=== PATIENT | female | born 1955 | race Two or more races ===

== ENCOUNTER 2020-08-30 06:40 | Outpatient (REF) | payer OTHER, SELFPAY ==
[2020-08-30 11:30] LABS: MANUAL DIFF FLAG NO
[2020-08-30 11:38] LABS: Basophils Percent Auto 0.6 % (0-2); Eosinophils Absolute Auto 0.6 X10*3/uL (0.0-0.4); Eosinophils Percent Auto 8.4 % (0-4); Hematocrit 43.4 % (37-47); Imm Gran Abs Auto 0.02 X10*3/uL (0.00-0.03); Imm Gran Pct Auto 0.3 % (0.0-0.4); Lymphocytes Absolute Auto 2.2 X10*3/uL (1.2-4.9); Lymphocytes Percent Auto 34.1 % (20-40); Mean Corpuscular HGB Conc 32.3 g/dl (31.0-35.0); Mean Corpuscular Hemoglobin 30.3 pg (27.0-33.0); Mean Corpuscular Volume 93.9 fL (80-98); Mean Platelet Volume 11.2 fL (9.4-12.3); Monocytes Absolute Auto 0.5 X10*3/uL (0.1-1.2); Monocytes Percent Auto 7.8 % (2-11); Neutrophils Absolute Auto 3.2 X10*3/uL (2.0-8.3); Neutrophils Percent Auto 48.8 % (45-73); Platelet Count 251 X10*3/uL (160-400); Red Blood Count 4.62 X10*6/uL (4.20-5.50); Red Cell Distribution Width 13.2 % (11.0-16.0); White Blood Count 6.5 X10*3/uL (4.8-10.8)
[2020-08-30 11:42] LABS: Alanine Aminotransferase 72 U/L (0-31); Anion Gap 12 (12-20); Aspartate Amino Transferase 43 U/L (5-31); Blood Urea Nitrogen 11 mg/dL (9-16); Calcium 9.3 mg/dL (8.4-10.2); Carbon Dioxide 28 mmol/L (22-29); Chloride 105 mmol/L (96-108); Cholesterol 169 mg/dL; Estimated Glomerular Filt Rate > 60; Glucose Fasting 89 mg/dL (60-99); HDL Cholesterol 58 mg/dL; LDL Cholesterol Calculated 88 mg/dl; Potassium 4.1 mmol/l (3.3-5.1); Sodium 141 mmol/L (135-145); Triglycerides 116 mg/dL; Uric Acid 6.3 mg/dL (2.4-5.7)
[2020-08-30 12:07] LABS: Vitamin D 25-OH Total 38.9 ng/mL (>30)
== END 2020-08-30 06:41 | disposition home or self-care (01) ==
LOC: HO.HMGCLDS 06:40
PROVIDERS: PCP Internal Medicine; Visit Provider Internal Medicine
DX: Z00.01 Encounter for general adult medical examination with abnormal findings (principal); I10 Essential (primary) hypertension; E79.0 Hyperuricemia without signs of inflammatory arthritis and tophaceous disease; Z78.0 Asymptomatic menopausal state; M85.859 Other specified disorders of bone density and structure, unspecified thigh
CPT/HCPCS: 36415; 80048; 80061; 82306; 84443; 84450; 84460; 84550; 85025

== ENCOUNTER 2021-05-03 06:33 | Outpatient (REF) | payer OTHER, SELFPAY ==
[2021-05-03 11:49] LABS: Uric Acid 6.6 mg/dL (2.4-5.7)
[2021-05-03 12:16] LABS: Vitamin D 25-OH Total 31.7 ng/mL (>30)
== END 2021-05-03 06:34 | disposition home or self-care (01) ==
LOC: HO.HMGCLDS 06:33
PROVIDERS: PCP Internal Medicine; Visit Provider Internal Medicine
DX: E79.0 Hyperuricemia without signs of inflammatory arthritis and tophaceous disease (principal); M85.852 Other specified disorders of bone density and structure, left thigh; Z78.0 Asymptomatic menopausal state
CPT/HCPCS: 36415; 82306; 84550

== ENCOUNTER 2021-11-13 08:55 | Outpatient (REF) | payer OTHER, SELFPAY ==
[2021-11-13 12:36] LABS: Alanine Aminotransferase 70 U/L (0-31); Albumin Level 4.4 g/dL (3.5-5.0); Alkaline Phosphatase 84 U/L (39-117); Anion Gap 12 (12-20); Aspartate Amino Transferase 41 U/L (5-31); Bilirubin Total 0.4 mg/dL (0.0-1.0); Blood Urea Nitrogen 16 mg/dL (9-16); Calcium 9.7 mg/dL (8.4-10.2); Carbon Dioxide 27 mmol/L (22-29); Chloride 105 mmol/L (96-108); Cholesterol 189 mg/dL; Estimated Glomerular Filt Rate > 60; Glucose Fasting 88 mg/dL (60-99); HDL Cholesterol 63 mg/dL; LDL Cholesterol Calculated 108 mg/dl; Potassium 4.1 mmol/L (3.3-5.1); Sodium 140 mmol/L (135-145); Total Protein 8.2 g/dL (6.5-8.0); Triglycerides 91 mg/dL
[2021-11-13 12:38] LABS: Vitamin D 25-OH Total 33.2 ng/mL (>30)
== END 2021-11-13 08:56 | disposition home or self-care (01) ==
LOC: HO.HMGCLDS 08:55
PROVIDERS: PCP Internal Medicine; Visit Provider Internal Medicine
DX: Z00.01 Encounter for general adult medical examination with abnormal findings (principal); N60.91 Unspecified benign mammary dysplasia of right breast; E79.0 Hyperuricemia without signs of inflammatory arthritis and tophaceous disease; M85.852 Other specified disorders of bone density and structure, left thigh; Z78.0 Asymptomatic menopausal state
CPT/HCPCS: 36415; 80053; 80061; 82306; 84550

== ENCOUNTER 2021-12-01 09:00 | Outpatient (RCR) | payer OTHER, SELFPAY ==
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
== END 2021-12-01 12:16 | disposition home or self-care (01) ==
LOC: HO.PTCHIC 09:00
PROVIDERS: PCP Internal Medicine; Visit Provider Internal Medicine
DX: S16.1XXD Strain of muscle, fascia and tendon at neck level, subsequent encounter (principal); S39.012D Strain of muscle, fascia and tendon of lower back, subsequent encounter; Z87.828 Personal history of other (healed) physical injury and trauma
CPT/HCPCS: 97014; 97110; 97140; 97161

== ENCOUNTER 2022-02-27 14:07 | Outpatient (REF) | payer MEDICARE, SELFPAY ==
[2022-02-27 15:19] LABS: MANUAL DIFF FLAG NO
[2022-02-27 15:42] LABS: Basophils Absolute Auto 0.1 X10*3/uL (0.0-0.2); Basophils Percent Auto 0.7 % (0-2); Eosinophils Absolute Auto 0.3 X10*3/uL (0.0-0.4); Eosinophils Percent Auto 4.5 % (0-4); Hematocrit 44.3 % (37.0-47.0); Hemoglobin 14.4 g/dl (12.0-16.0); Imm Gran Abs Auto 0.02 X10*3/uL (0.00-0.03); Imm Gran Pct Auto 0.3 % (0.0-0.4); Lymphocytes Absolute Auto 2.4 X10*3/uL (1.2-4.9); Lymphocytes Percent Auto 34.8 % (20-40); Mean Corpuscular HGB Conc 32.5 g/dl (31.0-35.0); Mean Corpuscular Hemoglobin 30.6 pg (27.0-33.0); Mean Corpuscular Volume 94.3 fL (80.0-98.0); Mean Platelet Volume 10.7 fL (9.4-12.3); Monocytes Absolute Auto 0.5 X10*3/uL (0.1-1.2); Monocytes Percent Auto 7.6 % (2-11); Neutrophils Absolute Auto 3.6 x10*3/uL (2.0-8.3); Neutrophils Percent Auto 52.1 % (45-73); Platelet Count 260 X10*3/uL (160-400); Red Cell Distribution Width 13.1 % (11.0-16.0); White Blood Count 6.9 X10*3/uL (4.8-10.8)
[2022-02-27 16:05] LABS: Alanine Aminotransferase 64 U/L (0-31); Albumin Level 4.4 g/dL (3.5-5.0); Alkaline Phosphatase 82 U/L (39-117); Anion Gap 11 (12-20); Aspartate Amino Transferase 39 U/L (5-31); Bilirubin Total 0.3 mg/dL (0.0-1.0); Blood Urea Nitrogen 17 mg/dL (9-16); Calcium 10.3 mg/dL (8.4-10.2); Carbon Dioxide 29 mmol/L (22-29); Chloride 107 mmol/L (96-108); Estimated Glomerular Filt Rate > 60; Glucose Random 104 mg/dL (60-115); Potassium 4.1 mmol/L (3.3-5.1); Sodium 143 mmol/L (135-145); Total Protein 8.3 g/dL (6.5-8.0)
== END 2022-02-27 14:08 | disposition home or self-care (01) ==
LOC: HO.LAB 14:07
PROVIDERS: PCP Internal Medicine; Referring Provider Internal Medicine; Visit Provider Nurse Practitioner
DX: Z01.818 Encounter for other preprocedural examination (principal); D12.6 Benign neoplasm of colon, unspecified
CPT/HCPCS: 36415; 80053; 85025; 99202

== ENCOUNTER 2022-08-23 06:45 | Day surgery (SDC) | payer MEDICARE, SELFPAY ==
[2022-08-17 10:44] VITALS: BMI 27.9
[2022-08-17 10:49] VITALS: BMI 27.9
--- NOTE | 2022-08-22 08:19 | P.CONAN_ITS ---
Documented by User: Sinai Santillan NP 08/22/22 08:20 HPI - Anesthesia Eval Consult details Narrative: 66yo F for Colonoscopy PMFSH Active Problems Active Problems: All Active Problems (Updated 02/27/22 @ 15:20 by DAVID العراقي) Colon cancer screening (Acute) Tubular adenoma of colon (Acute) Spasm of lumbar paraspinous muscle (Acute) Skin lesion of face (Acute) Hyperuricemia (Acute) Asymptomatic postmenopausal state (Acute) Atypical ductal hyperplasia of right breast (Acute) Osteopenia of femoral neck (Acute) Past Medical History Medical History (Updated 02/27/22 @ 15:20 by DAVID العراقي) Asymptomatic postmenopausal state Atypical ductal hyperplasia of right breast Cervical strain, acute Hyperuricemia Osteopenia of femoral neck Rotator cuff injury Skin lesion of face Spasm of lumbar paraspinous muscle Tubular adenoma of colon Family History Family History Father Acute [place] CAD (coronary artery disease) Gout HTN (hypertension) CVD (cardiovascular disease) Mother Diabetes mellitus HTN (hypertension) CVD (cardiovascular disease) Pacemaker Brother No problems noted. Brother No problems noted. Brother No problems noted. Sister No problems noted. Son No problems noted. Son No problems noted. Surgical History Surgical History (Updated 08/17/22 @ 10:41 by Alessandra Mcbride RN) History of colonoscopy History of rotator cuff surgery Social History Social History Housing: House Alcohol intake: current Alcohol intake frequency: holidays/special occasions only Patient Tobacco Use Status: Never used Tobacco e-Cigarette/Vaping Use: Never Used Second Hand Smoke Exposure: No service: No Current occupational status: retired Cognitive needs: No Hearing needs: No Vision needs: No Meds Allergies Allergy/AdvReac Type Severity Reaction Status Date / Time oxycodone [Percocet] AdvReac Unknown lightheaded, Verified 02/27/22 14:33 nausea & vomiting Home Medications Medication Instructions Recorded Confirmed Last Taken Type anastrozole 1 mg tablet 1 mg PO DAILY 08/25/20 08/17/22 Unknown History cholecalciferol (vitamin D3) 25 25 mcg PO DAILY 08/25/20 08/17/22 Unknown History mcg (1,000 unit) tablet cyclobenzaprine 10 mg tablet 10 mg PO TID 07/31/21 08/17/22 Unknown History ibuprofen 800 mg tablet 800 mg PO TID 07/31/21 11/13/21 Unknown History Exam Exam Date and Time: August 22, 2022 0819 Height,Weight and Vital Signs: Height 5 ft 4 in Weight 73.936 kg Pertinent Lab Results Pertinent Lab Results: Laboratory Tests 02/27/22 02/27/22 15:17 15:17 WBC 6.9 Hgb 14.4 Hct 44.3 Plt Count 260 Sodium 143 Potassium 4.1 Chloride 107 Carbon Dioxide 29 BUN 17 H Creatinine 0.89 Assessment and Plan Assessment Anesthesia Assessment: Chart Reviewed Documented by User: Andre Cordero MD 08/23/22 17:51 [facility] Past Medical History Medical History (Updated 02/27/22 @ 15:20 by DAVID العراقي) Asymptomatic postmenopausal state Atypical ductal hyperplasia of right breast Cervical strain, acute Hyperuricemia Osteopenia of femoral neck Rotator cuff injury Skin lesion of face Spasm of lumbar paraspinous muscle Tubular adenoma of colon Functional capacity: independent ambulation Family History Family History Father Acute [place] CAD (coronary artery disease) Gout HTN (hypertension) CVD (cardiovascular disease) Mother Diabetes mellitus HTN (hypertension) CVD (cardiovascular disease) Pacemaker Brother No problems noted. Brother No problems noted. Brother No problems noted. Sister No problems noted. Son No problems noted. Son No problems noted. Family history of problems with anesthesia: No Surgical History Surgical History (Updated 08/17/22 @ 10:41 by Alessandra Mcbride RN) History of colonoscopy History of rotator cuff surgery History of Problems with Anesthesia: No Social History Social History Housing: House Alcohol intake: current Alcohol intake frequency: holidays/special occasions only Patient Tobacco Use Status: Never used Tobacco e-Cigarette/Vaping Use: Never Used Second Hand Smoke Exposure: No service: No Current occupational status: retired Cognitive needs: No Hearing needs: No Vision needs: No Meds Allergies Allergy/AdvReac Type Severity Reaction Status Date / Time oxycodone [Percocet] AdvReac Unknown lightheaded, Verified 02/27/22 14:33 nausea & vomiting Home Medications Medication Instructions Recorded Confirmed Last Taken Type anastrozole 1 mg tablet 1 mg PO DAILY 08/25/20 08/17/22 Unknown History cholecalciferol (vitamin D3) 25 25 mcg PO DAILY 08/25/20 08/17/22 Unknown History mcg (1,000 unit) tablet cyclobenzaprine 10 mg tablet 10 mg PO TID 07/31/21 08/17/22 Unknown History ibuprofen 800 mg tablet 800 mg PO TID 07/31/21 11/13/21 Unknown History Exam Airway Mallampati Class: III Neck ROM: Full Loose/Missing/Broken Teeth: Yes (Multiple missing front lower ) Heart: S1,S2 Lungs: b/l breath sounds Assessment and Plan Assessment Anesthesia Assessment: Anesthesia Plan Discussed Final Anesthetic Review Family History of Problems with Anesthesia: No History of Problems with Anesthesia: No NPO: Yes ASA Class: II Final Preanesthetic Review: Meds/Allgs Chart Reviewed, Consent Obtained/Reviewed and Anes Risks/Benef Reviewed Patient Risk: Intermediate Procedure Risk: Intermediate Anesthetic Plan Anesthetic Plan: MAC: Disposition: Standard PACU
[2022-08-23 06:57] VITALS: BP 148/73; PULSE 65; RESP 18; TEMP 36.1; O2SAT 99
[2022-08-23 07:08] VITALS: BMI 27.4
[2022-08-23] MEDS: Lactated Ringers 1,000 ML 100 ML IVCONT (07:29)
--- NOTE | 2022-08-23 08:25 | MHC.SHP ---
Pre-Procedural Eval Section A Date of Service: 08/23/22 Section B Chief Complaint: screening Details of Present Illness: aunt with CRC Relevant Family History (Specify if Yes): Yes Relevant Social History: None Present Medications: see Short Stay Collaborative assessment Medical History: Significant History (Asymptomatic postmenopausal state Atypical ductal hyperplasia of right breast Cervical strain, acute Hyperuricemia Osteopenia of femoral neck Rotator cuff injury Skin lesion of face Spasm of lumbar paraspinous muscle Tubular adenoma of colon) History of Previous Operations: Relevant previous surgery/procedure and date(s) (rotator cuff surgery, colonoscopy) Allergies: Allergies Allergy/AdvReac Type Severity Reaction Status Date / Time oxycodone [Percocet] AdvReac Unknown lightheaded, Verified 02/27/22 14:33 nausea & vomiting Review of Systems Sugical H&P ROS: Negative: Constitution, Cardiovascular, Respiratory, Neurological, Psychiatric, Hem-Onc, Allergic/Immunologic, Gastrointestinal, Genitourinary, Musculoskeletal, Integumentary, Endocrine and Eyes/Ears/Nose/Throat Exam Surgical H&P Exam: Normal: HEENT, Normal: Heart, Normal: Lungs, Normal: Extremities, Normal: Abdomen, Normal: Skin and Normal: Neurological Plan Diagnosis/Plan: Unchanged I have reviewed the history and physical and performed a pertinent physical examination on my patient. No changes have occurred unless specified.
--- NOTE | 2022-08-23 08:26 | P.OP_ITS ---
Operative Note Operative Note Date of Service: 08/23/22 Narrative: Operative Information Procedure Description: Colonoscopy Indication: screening, father with polyps, personal hx of polyps Anesthesia: MAC COLONOSCOPY Instrument: Olympus variable stiffness pediatric scope 190L Colonoscopy Monitoring: Vital signs and clinical assessment, continuous EKG monitoring, Pulse oximetry, Carbon Dioxide monitoring and blood pressure monitoring were done throughout the procedure. Colon withdrawal time was 7 minutes. Procedure: The patient was placed in the left lateral decubitis position and pre-procedure medications were administered. After a digital rectal examination of the ano-rectum, the video colonoscope was inserted into the rectum and advanced through the colon to the cecum/TI. The colonoscope was slowly withdrawn in a retrograde panoramic fashion and the colon mucosa was carefully examined including a retroflexed view of the rectum. Findings and interventions are described below. Procedure Difficulty: easy Findings: Terminal Ileum-normal Cecum:normal Ascending Colon: normal Transverse Colon -normal Descending Colon:normal Sigmoid Colon: scattered small tics Rectum: Retroflexion with medium sized internal hemorrhoids, grade I Anorectum - normal Colon preparation: [place] Bowel Preparation Scale Right colon; 2 Transverse colon: 3 Left colon; 3 (0 = Unprepared colon segment with mucosa not seen due to solid stool that cannot be cleared. 1 = Portion of mucosa of the colon segment seen, but other areas of the colon segment not well seen due to staining, residual stool and/or opaque liquid. 2 = Minor amount of residual staining, small fragments of stool and/or opaque liquid, but mucosa of colon segment seen well. 3 = Entire mucosa of colon segment seen well with no residual staining, small fragments of stool or opaque liquid) Impression and Post Procedure Diagnosis: internal hemorrhoids diverticular disease Plan: High fiber diet leaflet Avoid straining at stool, epsom salts and sitz bath, anusol supps or cream Repeat Colonoscopy in 5 years due to FH of polyps and personal hx of unknown type of polyps or earlier if clinically indicated Above findings were reviewed with the patient and relevant handouts were provided if indicated.
[2022-08-23 08:53] VITALS: BP 84/52; PULSE 69; RESP 18; TEMP 36.1; O2SAT 96
[2022-08-23 09:08] VITALS: BP 133/77; PULSE 68; RESP 18; TEMP 36.4; O2SAT 97
== END 2022-08-23 09:43 | disposition home or self-care (01) ==
PROVIDERS: PCP Internal Medicine; Visit Provider Internal Medicine Gastroenterology
PROC: 0DJD8ZZ Inspection of Lower Intestinal Tract, Via Natural or Artificial Opening Endoscopic (ICD-10-PCS; CPT 45378; principal; 2022-08-23 08:10)
DX: Z12.11 Encounter for screening for malignant neoplasm of colon (principal); Z86.010 Personal history of colon polyps; Z83.71 Family history of colonic polyps; K57.30 Diverticulosis of large intestine without perforation or abscess without bleeding; K64.0 First degree hemorrhoids; M85.851 Other specified disorders of bone density and structure, right thigh; N60.91 Unspecified benign mammary dysplasia of right breast; E79.0 Hyperuricemia without signs of inflammatory arthritis and tophaceous disease; Z79.811 Long term (current) use of aromatase inhibitors; Z79.899 Other long term (current) drug therapy; Z88.8 Allergy status to other drugs, medicaments and biological substances
CPT/HCPCS: G0105

== ENCOUNTER → 2022-09-13 08:36 | Outpatient (BNVA) | payer MEDICARE, SELFPAY | PROVIDERS: PCP Internal Medicine; Visit Provider Nurse Practitioner | DX: D12.6 Benign neoplasm of colon, unspecified (principal) | CPT/HCPCS: 99212 ==

== ENCOUNTER 2023-07-18 14:57 | Outpatient (AMB) | payer MEDICARE, SELFPAY ==
--- NOTE | 2023-07-18 15:00 | MHC.PC.OV ---
Vital Signs 07/18/23 15:01 Height 5 ft 4 in Weight 165 lb 6 oz BMI 28.4 BP 122/76 Blood Pressure Location Rt brachial Position Sitting Pulse 77 Pulse Source Pulse Oximeter Pulse Oximetry (%) 97 Oxygen Delivery Method Room Air Intake Visit Reasons: 6 month f/u osteopenia Intake Note: pt is here for 6 mon f/u osteopenia Compound Mixer Required: No Accompanied by: Self / Same As Patient Allergies oxycodone [Percocet] Adverse Reaction (Unknown, Verified 07/18/23 15:56) lightheaded, nausea & vomiting Medication List - Last Reconciled 07/18/23 by Daphney Bhatia MD anastrozole 1 mg PO DAILY cholecalciferol (vitamin D3) 25 mcg PO DAILY [TENS UNIT As directed] Tobacco use date assessed: 07/18/23 Fall risk assessment: No Falls in past year Last assessed Fall Risk: 07/18/23 Dental Screening Dental Screen Date: 07/18/23 Did you have a dental visit in the last 12 months?: Yes Did you have a dental problem in the last 6 months where you did not have access to dental care?: No Was dental information given to patient?: Patient has dentist HPI 6 month f/u osteopenia HPI Details 67-year-old lady with history of atypical ductal hyperplasia right breast currently on anastrozole, has osteopenia femoral neck on the left, hyperuricemia, and history of adenomatous polyps of colon seen on last colonoscopy, here today for follow-up. She has been feeling well, but has not been getting any regular exercise, has gained weight since last visit. She had a recent bone density scan done at [facility] which still showed presence of osteopenia in left femoral neck. [facility], [facility] Medical History (Updated 07/18/23 @ 17:33 by Daphney Bhatia MD) Spasm of lumbar paraspinous muscle Skin lesion of face Cervical strain, acute Asymptomatic postmenopausal state Hyperuricemia Atypical ductal hyperplasia of right breast Tubular adenoma of colon Osteopenia of femoral neck Rotator cuff injury Surgical History History of colonoscopy History of rotator cuff surgery Family History Father Acute [place] CAD (coronary artery disease) Gout HTN (hypertension) CVD (cardiovascular disease) Mother Diabetes mellitus HTN (hypertension) CVD (cardiovascular disease) Pacemaker Brother No problems noted. Brother No problems noted. Brother No problems noted. Sister No problems noted. Son No problems noted. Son No problems noted. Social History Housing: House Alcohol intake: current Alcohol intake frequency: holidays/special occasions only Patient Tobacco Use Status: Never used Tobacco e-Cigarette/Vaping Use: Never Used Second Hand Smoke Exposure: No service: No Current occupational status: retired Cognitive needs: No Hearing needs: No Vision needs: No Questionnaire Thrive Questionnaire Date Thrive assessed: 11/13/21 SAMIR-7 AMB Questionnaire SAMIR-7 Date SAMIR - 7 assessed: 07/18/23 Feeling nervous, anxious, or on edge: 0 = Not at all Not being able to stop or control worryin = Not at all Worrying too much about different things: 0 = Not at all Trouble relaxin = Not at all Being so restless that it is hard to sit still: 0 = Not at all Becoming easily annoyed or irritable: 0 = Not at all Feeling afraid as if something awful might happen: 0 = Not at all Total SAMIR-7 score (0-4 normal; 5-9 mild; 10-14 moderate; 15-21 severe): 0 Source: Developed by Drs. Dany Flynn, Renetta Valladares, Alexander Pink and colleagues, with an educational sophie from [employer]. SAMIR-7 Assessment Billing SAMIR-7 Assessment Tool: SAMIR-7 Assessment 57492 Review of Systems Const Denies body aches, Denies difficulty sleeping, Denies fatigue, Denies fever(s), Denies headache(s), Denies weakness and Reports weight gain Eyes Denies change in vision, Denies eye discharge and Denies itchy eyes ENT Reports Normal hearing present, Denies vertigo, Denies dizziness, Denies headache(s), Denies nasal congestion, Denies nasal discharge, Denies disequilibrium and Denies sore throat Card Denies chest pain, Denies irregular heart rhythm, Denies lightheadedness, Denies palpitations and Denies dyspnea Resp Denies chest congestion, Denies cough, Denies dyspnea and Denies wheezing GI Denies abdominal pain, Denies melena, Denies hematochezia, Denies change in bowel habits and Denies heartburn Denies urinary frequency, Denies dysuria, Denies urinary urgency and Reports vaginal dryness Musc Reports no additional complaints Skin/Breast Denies breast swelling, Denies breast pain, Denies breast mass, Denies lesions and Denies rash Neuro Reports Normal hearing present, Denies vertigo, Denies dizziness, Denies headache(s), Denies Sensory deficit (Neuro), Denies disequilibrium and Denies weakness Psych Reports as per HPI Endo Denies fatigue, Denies polydipsia, Denies polyuria and Denies palpitations López/Lymph Reports no additional complaints and Denies easy bruising Aller/Immun Denies itchy eyes, Denies seasonal rhinorrhea and Denies wheezing Physical exam (Primary Care) Vital Signs: Last Vital Signs Pulse 77 07/18/23 15:01 BP 122/76 07/18/23 15:01 Pulse Ox 97 07/18/23 15:01 Oxygen Delivery Method Room Air 07/18/23 15:01 BMI result Body Mass Index 28.4 Tobacco/Smoking Status: Tobacco use Status Tobacco use date assessed 07/18/23 07/18/23 15:03 Patient Tobacco Use Status Never used Tobacco 07/18/23 15:03 e-Cigarette/Vaping Use Never Used 07/18/23 15:03 Thrive Assessment: Date of Thrive Assessment Date Thrive assessed 11/13/21 07/18/23 15:03 Const General: comfortable, no acute distress, alert, awake and Physically active Orientation/consciousness: patient oriented x3 HENNM Head: Yes normocephalic Mouth: Normal oral and palatal mucosa present, oropharynx normal and moist mucous membranes Eyes General: appearance normal, both eyes and all related structures Neck Neck: Yes full ROM, Yes no lymphadenopathy and Yes supple Resp Auscultation: clear to auscultation bilaterally Cardio Other: S1-S2 present regular rate and rhythm GI Other: Normal bowel sounds, soft, nontender with no mass palpated General: Yes no CVA tenderness Back/Spine/Pelvis Back: no CVA tenderness and No back tenderness Cervical Spine: normal cervical lordosis and cervical ROM normal Thoracic/Lumbar Spine: thoracic and lumbar spine normal to inspection Skin General skin exam: no rashes or lesions noted Neuro General: patient oriented x3, gait normal, tone normal, moves all extremities and no focal motor deficits Cranial nerves: Yes Normal hearing present Sensory Exam: No Sensory deficit (Neuro) Extrem General: Yes full ROM, Yes no joint enlargement, Yes no clubbing, cyanosis or edema and Yes normal gait Assessment and Plan Assessment & Plan (1) Hyperuricemia: Code(s): E79.0 - Hyperuricemia without signs of inflammatory arthritis and tophaceous disease Plan: Discussed adherence with a low purine diet. Will check serum uric acid, has not had any attacks of gout since last visit. (2) Osteopenia of femoral neck: Code(s): M85.859 - Other specified disorders of bone density and structure, unspecified thigh Qualifiers: Laterality: left Qualified Code(s): M85.852 - Other specified disorders of bone density and structure, left thigh Plan: Wants noted on recent bone density scan done at [facility]. Reinforced importance of doing regular weight-bearing exercise, taking adequate calcium from dietary sources and continue taking [id number] vitamin-D 3 at 2000 units daily. (3) Atypical ductal hyperplasia of right breast: Code(s): N60.91 - Unspecified benign mammary dysplasia of right breast Plan: Currently on anastrozole, followed by Dr. Arlyn GARCIA Orders: Orders Glucose Fasting Today E79.0 - Hyperuricemia without signs of inflammatory arthritis and tophaceous disease, M85.859 - Other specified disorders of bone density and structure, unspecified thigh, Z13.1 - Encounter for screening for diabetes mellitus, Z78.0 - Asymptomatic menopausal state Uric Acid Today E79.0 - Hyperuricemia without signs of inflammatory arthritis and tophaceous disease, M85.859 - Other specified disorders of bone density and structure, unspecified thigh, Z78.0 - Asymptomatic menopausal state Vitamin D 25-OH Total Today E79.0 - Hyperuricemia without signs of inflammatory arthritis and tophaceous disease, M85.859 - Other specified disorders of bone density and structure, unspecified thigh, Z78.0 - Asymptomatic menopausal state Lipid Panel Today E79.0 - Hyperuricemia without signs of inflammatory arthritis and tophaceous disease, M85.859 - Other specified disorders of bone density and structure, unspecified thigh, Z13.220 - Encounter for screening for lipoid disorders, Z78.0 - Asymptomatic menopausal state Liver Panel Today E79.0 - Hyperuricemia without signs of inflammatory arthritis and tophaceous disease, M85.859 - Other specified disorders of bone density and structure, unspecified thigh, Z78.0 - Asymptomatic menopausal state Coding Level of Care Code Est Pt Level 3 (92949) Diagnoses Hyperuricemia E79.0 Osteopenia of neck of left femur M85.852 Laterality: left Atypical ductal hyperplasia of right breast N60.91 Additional Codes SAMIR-7 Assessment Billing - SAMIR-7 Assessment Tool: SAMIR-7 Assessment 12808 ([id number])
[2023-07-18 15:01] VITALS: BP 122/76; PULSE 77; O2SAT 97; BMI 28.4
== END 2023-07-18 16:23 | disposition home or self-care (01) ==
PROVIDERS: PCP Internal Medicine; Visit Provider Internal Medicine
DX: E79.0 Hyperuricemia without signs of inflammatory arthritis and tophaceous disease (principal); M85.852 Other specified disorders of bone density and structure, left thigh; N60.91 Unspecified benign mammary dysplasia of right breast
CPT/HCPCS: 99213

== ENCOUNTER 2023-07-19 06:08 | Outpatient (REF) | payer MEDICARE, SELFPAY ==
[2023-07-19 15:36] LABS: Alanine Aminotransferase 46 U/L (0-31); Albumin Level 4.4 g/dL (3.5-5.0); Alkaline Phosphatase 67 U/L (39-117); Aspartate Amino Transferase 36 U/L (5-31); Bilirubin Direct 0.2 mg/dL (0.0-0.5); Bilirubin Total 0.5 mg/dL (0.0-1.0); Cholesterol 183 mg/dL (<200); Glucose Fasting 88 mg/dL (60-99); HDL Cholesterol 62 mg/dL (>40); LDL Cholesterol Calculated 99 mg/dL (<100); Total Protein 8.2 g/dL (6.5-8.0); Triglycerides 112 mg/dL (<150); Uric Acid 8.3 mg/dL (2.4-5.7)
[2023-07-19 15:40] LABS: Vitamin D 25-OH Total 51.3 ng/mL (>30)
== END 2023-07-19 06:09 | disposition home or self-care (01) ==
LOC: HO.HMGCLDS 06:08
PROVIDERS: PCP Internal Medicine; Visit Provider Internal Medicine
DX: M85.859 Other specified disorders of bone density and structure, unspecified thigh (principal); Z13.220 Encounter for screening for lipoid disorders; Z13.1 Encounter for screening for diabetes mellitus; E79.0 Hyperuricemia without signs of inflammatory arthritis and tophaceous disease; Z78.0 Asymptomatic menopausal state
CPT/HCPCS: 36415; 80061; 80076; 82306; 82947; 84550

== ENCOUNTER 2025-02-02 10:33 | Outpatient (AMB) | payer MEDICARE, SELFPAY ==
--- NOTE | 2025-02-02 10:40 | AM.OFFVISMDC ---
Intake Vital Signs 02/02/25 10:50 Height 5 ft 2 in Weight 169 lb BMI 30.9 BP 130/70 Blood Pressure Location Lt brachial Position Sitting Respiration 16 Pulse 65 Pulse Source Pulse Oximeter Temp 97.8 F Temp Source Oral Pulse Oximetry (%) 98 Oxygen Delivery Method Room Air Intake Visit Reasons: SWV G0439 Intake Note: Pt is here for her SWV: last mammogram 12/30/23, bone denisty scan 12/21/21, colonoscopy 08/23/22 Allergies oxycodone [Percocet] Adverse Reaction (Unknown, Verified 02/02/25 11:13) lightheaded, nausea & vomiting Medication List - Last Reconciled 02/02/25 by Daphney Bhatia MD cholecalciferol (vitamin D3) 25 mcg PO DAILY [TENS UNIT As directed] HPI SWV G0439 HPI Details SWV ? 69 year old lady with history atypical ductal hyperplasia of right breast previously on anastrozole, history of tubular adenoma of colon, hyperuricemia, osteopenia femoral neck, presents for her ? Annual Wellness Visit, subsequentl visit.? She is up-to-date with her screening mammogram, done at [facility] last January 2025 with normal findings, a bone density scan was done in at the same time which still showed presence of osteopenia in the femoral neck, with an increase F8.8% in bone mineral density in lumbar spine since prior exam of 2022 and an increase in the bone density in the right femur and decreased by 0.4% in left femur. Had normal fasting lipids and fasting blood sugar level checked in 2021. She currently is followed by Dr. Stoddard for her routine Pap and pelvic exam, last done January 07 2025 but results were unsatisfactory, unsuccessful attempt with a obscuring inflammation present, patient states that she has a follow-up appointment already scheduled with them. She is up-to-date with her screening colonoscopy, last done in [address] Martinez, to be repeated in 5 years due to positive family history for colon cancer. She is up-to-date with her pneumonia vaccination, and shingles vaccines as well as Tdap but did not get her yearly flu shot this year and does not want to get COVID boosters. ? Medical / Social History Reviewed? Past Medical History ?Yes . ? [place] of Care / Care Team list updated ?Yes . ? Surgical/Hospitalization History ?Yes . ? Current Medications (including OTC and supplements) ?Yes . ? Family History ?Yes . ? Tobacco Control form ?Yes . ? AUDIT-C (Alcohol use) form ?Yes . ? Illicit drug use in Social History ?Yes . ? Current diagnosis of depression? ?No ? Appropriate PHQ2/PHQ9 completed ?Yes . ? Data entered by ?Real Estate Leasing Manager and reviewed by provider ? Fall Risk ? Fall History? Have you had any falls with injury in the past year? ?No . ? Have you had two or more falls in the past year? ?No . ? Fall Risk Assessment: ?No falls in the past year . ? HRA filled out by the patient, reviewed by Provider and scanned. ?SWV ? Balance? Romberg negative ? Tandem walk ?Yes . ? Walk and Turn ?Yes . ? Rise from sit to stand ?Yes . ?Vision? Corrective lens ?Yes ? Vision screen ? Up-to-date, goes to [place] [facility] ?Hearing? Whisper test ?pass . ?Written Plan?Completed. See Patient Documents.? [facility] Medical History (Updated 02/02/25 @ 11:15 by Daphney Bhatia MD) Alopecia areata Spasm of lumbar paraspinous muscle Skin lesion of face Cervical strain, acute Asymptomatic postmenopausal state Hyperuricemia Atypical ductal hyperplasia of right breast Tubular adenoma of colon Osteopenia of femoral neck Rotator cuff injury Surgical History History of colonoscopy History of rotator cuff surgery Family History Father Acute MA CAD (coronary artery disease) Gout HTN (hypertension) CVD (cardiovascular disease) Mother Diabetes mellitus HTN (hypertension) CVD (cardiovascular disease) Pacemaker Brother No problems noted. Brother No problems noted. Brother No problems noted. Sister No problems noted. Son No problems noted. Son No problems noted. Social History Housing: House Alcohol intake: current Alcohol intake frequency: holidays/special occasions only Patient Tobacco Use Status: Never used Tobacco e-Cigarette/Vaping Use: Never Used Second Hand Smoke Exposure: No service: No Current occupational status: retired Cognitive needs: No Hearing needs: No Vision needs: No Questionnaire Medicare Wellness Checkup What [age] What gender do you identify with?: female During the past 4 weeks, how much have you been bothered by emotional problems such as feeling anxious, depressed, irritable, sad or downhearted, and blue?: not at all During the past 4 weeks, has your physical & emotional health limited your social activities with family, friends, neighbors, or groups?: not at all During the past 4 weeks, how much bodily pain have you generally had?: no pain During the past 4 weeks, was someone available to help you if you needed & wanted help?: no, not at all During the past 4 weeks, what was the hardest physical activity you could do for at least 2 minutes?: light Can you get to places out of walking distance without help? (For eg., can you travel alone on buses, taxis or drive your car?): Yes Can you go shopping for groceries or clothes without someone's help?: Yes Can you prepare your own meals?: Yes Can you do your housework without help?: Yes Because of any health problems, do you need the help of another person with your personal care needs such as eating, bathing, dressing or getting around the house?: No Can you handle your own money without help?: Yes During the past 4 weeks, how would you rate your health in general?: excellent During the past 4 weeks how have things been going for you?: very well; could hardly better Are you having difficulties driving your car?: not applicable, I don't use a car Do you always fasten your seat belt when you are in a car?: yes, usually During past 4 weeks, have you been bothered by the following: never: Falling or dizzy when standing up, Sexual problems?, Trouble eating well?, Teeth or denture problems?, Problems using the telephone? and Tiredness or fatigue? Have you fallen 2 or more times in the past year?: No Are you afraid of falling?: No Are you a smoker?: no During the past 4 weeks, how many drinks of wine, beer, or other alcoholic beverages did you have?: no alcohol at all Do you exercise for about 20 minutes 3 or more times a week?: yes, all the time Have you been given information to help with the following?: no: Hazards in your house that might hurt you? and no: Keeping track of your medications? How often do you have trouble taking medicines the way you have been told to take them?: I do not have to take medicine How confident are you that you can control & manage most of your health problems?: very confident What is your race?: Mini Mental State Exam (MMSE) Orientation What is the (year) (season) (date) (day) (month)?: year (2024), season (spring), date (02/02/2025), day (saturday) and month (February) Where are we (state) (county) (town or city) (hospital) (floor)?: state ([place]), county ([place]), town or city ([place]) and hospital/clinic ([facility]) Score Score: 9 Activity of Daily Living Bathing - sponge bath, tub bath or shower: receives no assistance (gets in/out by self, if usual bathing means Dressing - getting clothes from closets & drawers, including inner/outer garments & fasteners.: gets clothes & gets completely dressed without help Toileting - going to the 'toilet room' for urine/bowel elimination & cleaning self/arranging clothes: goes to toilet room, cleans self, arranges clothes without help Transfer: moves in & out of bed and chair without help (may use support object) Continence: controls urination/bowel movements completely by self Feeding: feeds self without help Total Score: 0 Information obtained from: patient Using telephone: independent Traveling: needs assistance (pt does not drive) Shopping: independent Preparing meals: independent Housework: independent Taking medicine: independent Managing money: independent PHQ-9 Over the last 2 weeks, how often have you been bothered by any of the following problems? 1. Little interest or pleasure in doing things: not at all 2. Feeling down, depressed, or hopeless: not at all 3. Trouble falling or staying asleep, or sleeping too much: not at all 4. Feeling tired or having little energy: not at all 5. Poor appetite or overeating: not at all 6. Feeling bad about yourself - or that you are a failure or have let yourself or your family down: not at all 7. Trouble concentrating on things, such as reading the newspaper or watching television: not at all 8. Moving or speaking so slowly that other people could have noticed. Or the opposite - being so fidgety or restless that you have been moving around a lot more than usual: not at all 9. Thoughts that you would be better off or of hurting yourself in some way: not at all Total score: 0 Depression Screening Interpretation: Negative Depression Screening Done: Yes 10836 - PHQ-9 Billing: Yes Source: Developed by Drs. Dany L. GeeRenetta singh, Alexander Pink and colleagues, with an educational sophie from [employer]. Review of Systems Const All systems reviewed & are unremarkable except as noted in HPI and below Physical Exam Vital Signs: Last Vital Signs Temp 97.8 F 02/02/25 10:50 Pulse 65 02/02/25 10:50 Resp 16 02/02/25 10:50 BP 130/70 02/02/25 10:50 Pulse Ox 98 02/02/25 10:50 Oxygen Delivery Method Room Air 02/02/25 10:50 BMI result Body Mass Index 30.9 HEENT Head: Yes other (Circular bald spot on left frontal area of scalp) Neck Neck: Yes full ROM, Yes no lymphadenopathy and Yes supple Thyroid: Thyroid normal Resp Auscultation: clear to auscultation bilaterally Cardio Other: S1-S2 present regular rate and rhythm Skin General skin exam: no rashes or lesions noted Extrem General: Yes normal to inspection, Yes full ROM, Yes no joint enlargement, Yes no clubbing, cyanosis or edema, Yes no pedal edema, Yes no calf tenderness and Yes normal gait Assessment & Plan Assessment & Plan (1) Encounter for subsequent annual wellness visit in Medicare patient: Code(s): Z00.00 - Encounter for general adult medical examination without abnormal findings Plan: Medicare wellness checklist reviewed, discussed with patient and updated up-to-date with her vaccines but does not want to get a COVID booster. Up-to-date with her screening colonoscopy, due for a repeat Pap, cervical cancer screening with Dr. Stoddard (2) Alopecia areata: Code(s): L63.9 - Alopecia areata, unspecified Plan: Ordered CBC, TSH free T4, comprehensive metabolic panel, vitamin-D level. Dermatology consult ordered (3) Osteopenia of femoral neck: Code(s): M85.859 - Other specified disorders of bone density and structure, unspecified thigh Qualifiers: Laterality: left Qualified Code(s): M85.852 - Other specified disorders of bone density and structure, left thigh Plan: Continue regular weight-bearing exercise and adequate vitamin-D 3 supplements and dietary calcium. (4) Atypical ductal hyperplasia of right breast: Code(s): N60.91 - Unspecified benign mammary dysplasia of right breast Plan: Currently completed anastrozole, followed by Oncology at [place] and by her OBGYN Dr. Stoddard, up-to-date with her screening mammogram (5) Hyperuricemia: Code(s): E79.0 - Hyperuricemia without signs of inflammatory arthritis and tophaceous disease Plan: Will check uric acid level (6) Advanced directives, counseling/discussion: Code(s): Z71.89 - Other specified counseling Plan: Initiated the conversation about Advanced Directives. Advanced Directives help patients prepare for current and future decisions about their medical treatment and place of care. Discussed with patient that it is a process where a patients current condition and prognosis are reviewed, their wishes for information regarding their illness are elicited, and likely medical dilemmas are presented and options discussed. Healthcare proxy form and MOLST form completed today's visit. The form can be amended as needed, reviewed yearly and make changes as needed Orders: Orders Uric Acid 02/02/25 D12.6 - Benign neoplasm of colon, unspecified, E79.0 - Hyperuricemia without signs of inflammatory arthritis and tophaceous disease, L63.9 - Alopecia areata, unspecified, M85.852 - Other specified disorders of bone density and structure, left thigh, N60.91 - Unspecified benign mammary dysplasia of right breast, Z00.00 - Encounter for general adult medical examination without abnormal findings Comprehensive [place]. Panel Fast 02/02/25 D12.6 - Benign neoplasm of colon, unspecified, E79.0 - Hyperuricemia without signs of inflammatory arthritis and tophaceous disease, L63.9 - Alopecia areata, unspecified, M85.852 - Other specified disorders of bone density and structure, left thigh, N60.91 - Unspecified benign mammary dysplasia of right breast, Z00.00 - Encounter for general adult medical examination without abnormal findings Vitamin D 25-OH Total 02/02/25 D12.6 - Benign neoplasm of colon, unspecified, E79.0 - Hyperuricemia without signs of inflammatory arthritis and tophaceous disease, L63.9 - Alopecia areata, unspecified, M85.852 - Other specified disorders of bone density and structure, left thigh, N60.91 - Unspecified benign mammary dysplasia of right breast, Z00.00 - Encounter for general adult medical examination without abnormal findings Lipid Panel 02/02/25 D12.6 - Benign neoplasm of colon, unspecified, E79.0 - Hyperuricemia without signs of inflammatory arthritis and tophaceous disease, L63.9 - Alopecia areata, unspecified, M85.852 - Other specified disorders of bone density and structure, left thigh, N60.91 - Unspecified benign mammary dysplasia of right breast, Z00.00 - Encounter for general adult medical examination without abnormal findings Complete Blood Count Auto Diff 02/02/25 D12.6 - Benign neoplasm of colon, unspecified, E79.0 - Hyperuricemia without signs of inflammatory arthritis and tophaceous disease, L63.9 - Alopecia areata, unspecified, M85.852 - Other specified disorders of bone density and structure, left thigh, N60.91 - Unspecified benign mammary dysplasia of right breast, Z00.00 - Encounter for general adult medical examination without abnormal findings Referrals Dermatology Referral L63.9 - Alopecia areata, unspecified Quality Reporting (2019) Depression/Bipolar (159/160/161/177) PHQ-9: Total score: 0 Coding Level of Care Code Medicare Subsequent (G0439) Est Pt Level 4 (82416) Diagnoses Encounter for subsequent annual wellness visit in Medicare patient Z00.00 Alopecia areata L63.9 Osteopenia of neck of left femur M85.852 Laterality: left Atypical ductal hyperplasia of right breast N60.91 Hyperuricemia E79.0 Advanced directives, counseling/discussion Z71.89 CPT Codes Advance Care Planning - Time spent: 16-45 minutes ([id number]) Additional Codes PHQ-9 - 76677 - PHQ-9 Billing: Yes ([id number]) Advance Care Planning Advance Care Planning discussion: Completed/Scanned Date of discussion: 02/02/25 Who was present: Patient Forms completed: Health Care Proxy and MOLST Time spent: 16-45 minutes Actual minutes spent: 5
[2025-02-02 10:50] VITALS: BP 130/70; PULSE 65; RESP 16; TEMP 36.6; O2SAT 98; BMI 30.9
--- OUTSIDE RECORDS SUMMARY | 2025-02-02 12:33 | XMS_ITS | Clinical Summary ---
Author Organization [facility] Address [address] [place] [address] Care Team Providers Care Technology Sales Consultant Name Role Phone Daphney Bhatia MD Primary Care Provider [phone] Allergies Active Allergy Reactions Criticality Noted Date Comments Morphine And Codeine 10/24/2018 Intolerance- nausea Oxycodone-Acetaminophen Medications Medication Sig Dispensed Refills Start Date End Date Status allopurinol (ZYLOPRIM) 100 MG tablet Take 100 mg by mouth daily. 0 09/24/2019 Active D3-1000 25 MCG (1000 UT) tablet TAKE 1 TABLET BY MOUTH EVERY DAY. (TAKE 2 TABS ON MON, THURS) 90 tablet 2 02/12/2023 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 Urinary tract infectious disease 11/21/2018 Family History Medical History Relation Name Comments No Sig Med Hx Brother 1 No Sig Med Hx Brother 2 No Sig Med Hx Brother 3 Gout Father Other Father Septic shock- d ied Heart failure Mother Pacemaker Cancer Paternal Aunt colon cancer Diabetes Sister Kidney failure Sister Dialysis No Sig Med Hx Son 1 No Sig Med Hx Son 2 Relation Name Status Comments Brother 1 Alive Brother 2 Alive Brother 3 Alive Father Mother Paternal Aunt Sister Alive Son 1 Alive Son 2 Alive Social History Tobacco Use Types Packs/Day Years Used Date Smoking Tobacco: Never Smokeless Tobacco: Never Alcohol Use Standard Drinks/Week Comments No 0 (1 standard drink = 0.6 oz pur e alcohol) Sex and Gender Information Value Date Recorded Sex Assigned at Female 07/30/2021 3:48 PM EDT Gender Identity Not on file Sexual Orientation Not on file Job Start Date Occupation Industry Not on file Not on file Not on file Last Filed Vital Signs Vital Sign Reading Time Taken Comments Blood Pressure 133/70 09/12/2023 9:53 AM EST Pulse 66 09/12/2023 9:53 AM EST Temperature 36.9 ??C (98.4 ??F) 09/12/2023 9:53 AM ES T Respiratory Rate 15 07/30/2021 2:23 PM EDT Oxygen Saturation 96% 09/12/2023 9:53 AM EST Inhaled Oxygen Concentration - - Weight 75.4 kg (166 lb 3.2 oz) 09/12/2023 9:53 A M EST Height 160 cm (5' 3 ) 09/12/2023 9:53 AM EST Body Mass Index 29.44 09/12/2023 9:53 AM EST Plan of Treatment Health Maintenance Due Date Last Done Comments Hepatitis C Screening 1955 COVID-19 Vaccine (#1) [birth year]08[birth year]1957 Depression Screening 1968 BMI Counseling 1974 Preventative Health Evaluation 1974 DTap / Tdap / Td (1 - Tdap) 1975 Colon Cancer Screening (Colonoscopy) 2001 Breast Cancer Screening (Mammogram) 2006 Shingrix-Zoster Vaccine (1 of 2) 2006 Fall Risk Assessment 2021 Osteoporosis Screening (DEXA Scan) 2021 Pneumococcal Vaccine (1 of 1 - PCV) 2021 Influenza Vaccine (#1) 2024 09/12/2023 RSV Adult > 60+ Yrs or Pregn ant (1 - 1-dose 75+ series) 2031 Hepatitis B Vaccines Aged Out No long er eligible based on patient's age to complete this topic RSV Ped < 20 months Aged Out No longe r eligible based on patient's age to complete this topic Care Teams Technology Sales Consultant Relationship Specialty Start Date End Date Daphney Bhatia MD [address] [place] [id number] PCP - General Internal Medicine 10/16/18
--- OUTSIDE RECORDS SUMMARY | 2025-02-02 12:33 | XMS_ITS ---
Author Name [facility] Organization Unknown Care Team Organization Name Specialty Phone Email Start Date End Da te [facility] 3 [facility] Primary Care 07/30/2021 07/30/2021
--- OUTSIDE RECORDS SUMMARY | 2025-02-02 12:33 | XMS_ITS | Encounter Summary ---
Author Organization [facility] Address [id number] [place] [phone] Care Team Providers Care Wholesaler Name Role Phone Daphney Bhatia MD Primary Care Provider +- [phone] Reason for Referral * Imaging (Routine) - Closed Specialty Diagnoses / Procedures Referred By Izzy andrews Referred To Contact Radiology Diagnoses Post-menopause Procedures BD Bone Density DXA Axial Skeleton Kelechi Stoddard MD [address] [address] Phone: tel: fax: [address] [phone] Phone: tel: Referral ID Status Reason Start Date Expiration Date Visits Re quested Visits Authorized [id number] Closed 01/07/2025 01/07/2026 1 1 Reason for Visit * Imaging (Routine) - Closed Specialty Diagnoses / Procedures Referred By Izzy andrews Referred To Contact Radiology Diagnoses Post-menopause Procedures BD Bone Density DXA Axial Skeleton Kelechi Stoddard MD [address] [address] Phone: tel: fax: [address] [phone] Phone: tel: Referral ID Status Reason Start Date Expiration Date Visits Re quested Visits Authorized [id number] Closed 01/07/2025 01/07/2026 1 1 Encounter Details Date Type Department Care Team (Latest Contact Info) Description 01/28/2025 9:42 AM EDT - 01/28/2025 11:59 PM EDT Hospital Encounter [facility] Bone Density [address] [place] [phone] Post-menopause Discharge Disposition: Home or Self Care Social History Tobacco Use Types Packs/Day Years Used Date Smoking Tobacco: Never Smokeless Tobacco: Never Alcohol Use Standard Drinks/Week Comments No 0 (1 standard drink = 0.6 oz pur e alcohol) Comments No Sex and Gender Information Value Date Recorded Sex Assigned at Not on file Legal Sex Female 10:41 AM EST Gender Identity Not on file Sexual Orientation Not on file documented as of this encounter Medications at Time of Discharge multivitamin tablet Take 1 tablet by mouth 1 (one) time each day. documented as of this encounter Discharge Disposition Disposition Code Departure Means Destination Home or Self Care documented in this encounter Plan of Treatment Upcoming Encounters Date Type Department Care Team (Late st Contact Info) Description 09/17/2025 10:30 AM EST Office Visit [facility] Hematology Oncology [address] [place] [phone] Carlene Boyd, [address] [place] [address] documented as of this encounter Procedures Procedure Name Priority Date/Time Associated Diagnosis Comments BD BONE DENSITY DXA AXIAL SKELETON Routine 01/28/2025 10:33 AM EDT Post-menopause documented in this encounter Results * BD Bone Density DXA Axial Skeleton (01/28/2025 10:33 AM EDT) Anatomical Region Laterality Modality Wrist, Hip, L-spine Bone Densito metry 01/28/2025 11:0 9 AM EDT Impressions 01/28/2025 11:10 AM EDT 1. Osteopenia. ??There has been an increase of 8.8% in bone mineral density in the lumbar spine since the prior examination of 01/03/2023. ??There has been an increase of 2.3% in bone mineral density in the right femur and a decrease of 0.4% in bone mineral density in the left femur. 2. FRAX analysis yields a 10-year probability of major osteoporotic fracture of 6.1% and a 10-year probability of hip fracture of 1.0%. Code 70988 -------- FINAL REPORT -------- Dictated By: You Lorenzo Dictated Date: 01/28/2025 11:09 ET Assigned Physician: You Lorenzo Reviewed and Electronically Signed By: You Lorenzo Signed Date: 01/28/2025 11:10 ET Workstation ID: [id number] Transcribed By: Self Edit Transcribed Date: 01/28/2025 11:09 ET Narrative 01/28/2025 11:10 AM EDT HISTORY: ??The patient is a 69-year-old postmenopausal female with clinical concern for metabolic bone disease. FINDINGS: ??Dual energy x-ray absorptiometry of the lumbar spine and femurs is performed. The mean bone mineral density at L1-L4 is 1.254 gm/cm2 which is 106% of that of young normals and 123% of that of age matched controls. This yields a T- score of 0.6 and a Z-score of 2.0 and there is therefore no evidence of osteoporosis or osteopenia here. The mean bone mineral density of the femurs bilaterally is 0.946 gm/cm2 which is 94% of that of young normals and 110% of that of age matched controls. ??This yields a T-score of -0.5 and a Z-score of 0.7 and there is therefore no evidence of osteoporosis or osteopenia here. ??However, the T-score of the right femoral neck is -1.9 and that of the left femoral neck is -2.0 which is diagnostic of osteopenia. Procedure Note You Lorenzo MD - 01/28/2025 HISTORY: The patient is a 69-year-old postmenopausal female with clinicalconcern for metabolic bone disease. FINDINGS: Dual energy x-ray absorptiometry of the lumbar spine and femursis performed. The mean bone mineral density at L1-L4 is 1.254 gm/cm2 whichis 106% of that of young normals and 123% of that of age matched controls.This yields a T- score of 0.6 and a Z-score of 2.0 and there is thereforeno evidence of osteoporosis or osteopenia here. The mean bone mineral density of the femurs bilaterally is 0.946 gm/fa2zxcsu is 94% of that of young normals and 110% of that of age matchedcontrols. This yields a T-score of -0.5 and a Z-score of 0.7 and there istherefore no evidence of osteoporosis or osteopenia here. However, theT-score of the right femoral neck is -1.9 and that of the left femoralneck is -2.0 which is diagnostic of osteopenia. IMPRESSION: 1. Osteopenia. There has been an increase of 8.8% in bone mineral densityin the lumbar spine since the prior examination of 01/03/2023. There hasbeen an increase of 2.3% in bone mineral density in the right femur and adecrease of 0.4% in bone mineral density in the left femur. 2. FRAX analysis yields a 10-year probability of major osteoporoticfracture of 6.1% and a 10-year probability of hip fracture of 1.0%. Code 18275 -------- FINAL REPORT -------- Dictated By: You Lorenzo Dictated Date: 01/28/2025 11:09 ET Assigned Physician: You Lorenzo Reviewed and Electronically Signed By: You Lorenzo Signed Date: 01/28/2025 11:10 ET Workstation ID: [id number] Transcribed By: Self Edit Transcribed Date: 01/28/2025 11:09 ET Kelechi Stoddard MD IM DXA PROCEDURES Final Resul t documented in this encounter Visit Diagnoses Diagnosis Post-menopause Asymptomatic postmenopausal status (age-related) (natural) documented in this encounter Care Teams Wholesaler Relationship Specialty Start Date End Date Daphney Bhatia MD [address] [place] [address] PCP - General Internal Medicine 10/16/18 documented as of this encounter
--- OUTSIDE RECORDS SUMMARY | 2025-02-02 12:34 | XMS_ITS | Clinical Summary ---
Author Organization [facility] Address [address] [place] [phone] Phone Care Team Providers Care Aerospace Project Manager Name Role Phone Daphney Bhatia MD Primary Care Provider [phone]- [phone] Allergies Active Allergy Reactions Criticality Noted Date Comments Codeine Nausea Only 06/19/2024 Morphine 10/24/2018 Intolerance- nausea Oxycodone-Acetaminophen 06/19/2024 Medications multivitamin tablet Take 1 tablet by mouth 1 (one) time each day. 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 Urinary tract infectious disease 11/21/2018 Encounters Date Type Department Care Team Description 01/28/2025 9:42 AM EDT - 01/28/2025 11:59 PM EDT Hospital Encounter [facility] Bone Density [address] [place] [phone] Post-menopause Discharge Disposition: Home or Self Care 01/08/2025 Lab Requisition [facility] - Main Lab [address] [facility] [place] [phone] Kelechi Stoddard MD Encounter for gynecological examination (general) (routine) without abnormal findings 12/31/2024 10:06 AM EST - 12/31/2024 11:59 PM EST [facility] [address] [phone] Atypical ductal hyperplasia of breast; Encounter for screening mammogram for malignant neoplasm of breast Discharge Disposition: Home or Self Care from Last 3 Months Surgical History Surgery Date Site/Laterality Comments SHOULDER SURGERY 04/2017 Right PROCEDURE:SHOULDER SURGERY;COMMENT:Bicep Tendon tear SHOULDER SURGERY 2009 Left PROCEDURE:SHOULDER SURGERY;COMMENT:Tendon surgery COLONOSCOPY 04/2018 PROCEDURE:COLONOSCOPY;COMMENT:Dr Argueta at [facility]- polyps BREAST BIOPSY 09/15/2018 Right PROCEDURE:BREAST BIOPSY BREAST BIOPSY 10/07/2018 Right PROCEDURE:BREAST EXCISIONAL BIOPSY;COMMENT:GÉNESIS, ADH - By dr rod orosco Medical History Medical History Date Comments Vitamin D deficiency DX:Vitamin D deficiency Uterine disease DX:Uterine disea se;COMMENT:Unknown- dr wallace is obgyn Family History Medical History Relation Name Comments No Known Problems Brother 1 No Known Problems Brother 2 No Known Problems Brother 3 Gout Father Other: Father Septic shock- d ied Cancer Father's Sister colon cancer Heart failure Mother Pacemaker Diabetes Sister Kidney failure Sister Dialysis No Known Problems Son 1 No Known Problems Son 2 Relation Name Status Comments Brother 1 Alive Brother 2 Alive Brother 3 Alive Father Father's Sister Mother Sister Alive Son 1 Alive Son 2 [...] on file Sexual Orientation Not on file Obstetrics History Last Filed Vital Signs Vital Sign Reading Time Taken Comments Blood Pressure 118/65 09/11/2024 9:50 AM EST Pulse 74 09/11/2024 9:50 AM EST Temperature 37.2 ??C (99 ??F) 09/11/2024 9:50 AM EST Respiratory Rate - - Oxygen Saturation 97% 09/11/2024 9:50 AM EST Inhaled Oxygen Concentration - - Weight 72.1 kg (159 lb) 12/31/2024 10:12 AM EST Height 160 cm (5' 3 ) 12/31/2024 10:12 AM EST Body Mass Index 28.17 12/31/2024 10:12 AM EST Plan of Treatment Upcoming Encounters Date Type Department Care Team (Late st Contact Info) Description 09/17/2025 10:30 AM EST Office Visit [facility] Hematology Oncology [address] [place] [phone] Carlene Boyd DO [address] [place] [address] Health Maintenance Due Date Last Done Comments Colorectal Cancer Screening: Colonoscopy 10/11/2022 Depression Screening 10/11/2022 Falls Risk Assessment 10/11/2022 Hepatitis C Screening 10/11/2022 Social Influencers of Health Screening 10/11/2022 Medicare Annual Wellness Visit 11/21/2023 11/21/2022 COVID-19 Vaccine ( season) 2024 09/15/2021, 03/08/2021, 02/06/2021 Influenza Vaccine (Season Ended) 2025 09/12/2023, 09/07/2022, 09/15/2021, Additional history exists Breast Cancer Screening 12/31/2026 12/31/19, 12/30/2023, 12/26/2022, Additional history exists DTaP,Tdap,and Td Vaccines (2 - Td or Tdap) 03/04/2027 03/04/2017 RSV Immunization Patients 60+ Years Old (1 - 1-dose 75+ series) 2031 Osteoporosis Screening (Bone Density Screening) 01/28/2035 01/28/2025, 01/03/2023, 12/22/2021, Additional history exists Pneumococcal Vaccine: 50+ Years Completed 07/05/2022 Zoster Vaccines Completed 07/05/2022, 04/24/2022 HIB Vaccines Aged Out No longer eligi ble based on patient's age to complete this topic HPV Vaccines Aged Out No longer eligi ble based on patient's age to complete this topic Hepatitis A Vaccines Aged Out No long er eligible based on patient's age to complete this topic Hepatitis B Vaccines Aged Out No long er eligible based on patient's age to complete this topic IPV Vaccines Aged Out No longer eligi ble based on patient's age to complete this topic MMR Vaccines Aged Out No longer eligi ble based on patient's age to complete this topic Meningococcal ACWY Vaccine Aged Out N o longer eligible based on patient's age to complete this topic Meningococcal B Vacine Aged Out No lo nger eligible based on patient's age to complete this topic RSV Immunization Patients Under 20 months Aged Out No longer eligible based on patient's age to complete this topic Varicella Vaccines Aged Out No longer eligible based on patient's age to complete this topic Procedures Procedure Name Priority Date/Time Associated Diagnosis Comments BD BONE DENSITY DXA AXIAL SKELETON Routine 01/28/2025 10:33 AM EDT Post-menopause PAP SMEAR Routine 01/07/2025 12:00 AM EST Encounter for gynecological examination (general) (routine) without abnormal findings MG MAMMO DIGITAL SCREENING W ISAAC BILAT Routine 12/31/2024 10:21 AM EST Atypical ductal hyperplasia of breast Encounter for screening mammogram for malignant neoplasm of breast from Last 3 Months Results * BD Bone Density DXA Axial [...] probability of hip fracture of 1.0%. Code 25576 -------- FINAL REPORT -------- Dictated By: You Lorenzo Dictated Date: 01/28/2025 11:09 ET Assigned Physician: You Lorenzo Reviewed and Electronically Signed By: You Lorenzo Signed Date: 01/28/2025 11:10 ET Workstation ID: [id number] Transcribed By: Self Edit Transcribed Date: 01/28/2025 [...] density of the femurs bilaterally is 0.946 gm/pj9iieef is 94% of that of young normals [...] probability of hip fracture of 1.0%. Code 75619 -------- FINAL REPORT -------- Dictated By: You Lorenzo Dictated Date: 01/28/2025 11:09 ET Assigned Physician: You Lorenzo Reviewed and Electronically Signed By: You Lorenzo Signed Date: 01/28/2025 11:10 ET Workstation ID: [id number] Transcribed By: Self Edit Transcribed Date: 01/28/2025 11:09 ET Kelechi Stoddard MD IMG DXA PROCEDURES Final Resul t * Pap smear (01/07/2025 12:00 AM EST) Interpretation Unsatisfactory for evaluation/Unsuc cessful Attempt 01/11/2025 2:52 PM EDT [facility] General Categorization Other, see interpretation 01/11/2025 2:52 PM EDT [facility] Specimen Adequacy Specimen processed and examined, but unsatisfactory for eval of abnormal epithelial 01/11/2025 2:52 PM EDT [facility] Comment:Obscuring inflammati on present. Pap Methodology Liquid Based Pap Test 01/11/2025 2:52 PM EDT [facility] Disclaimer Note: This pap test could not be imaged utilizing the [employer] Imaging System and required a manual review. The Pap test is a screening test which carries an inherent false negative rate. These test results should be correlated with the patient's clinical findings and history. This Pap test was processed using an automated screening system. Technical cytopathology services provided by [facility], at [address] [place] [address], [place] [address] (CLIA # [id number]/Calista Mata MD, Labor Economics Teacher.) 01/11/2025 2:52 PM EDT [facility] Console Pap Interpretation Reported 01/11/2025 2:52 PM EDT [facility] Brushing/Spatula Cervix uteri structure / Unknown 01/07/2025 01/08/2025 7:46 AM EST us Kelechi Stoddard MD LAB CYTOLOGY ORDERABLES Final Result [facility] [address] [place] [address], * MG Mammo Digital Screening w Isaac bilat (12/31/2024 10:21 AM EST) Anatomical Region Laterality Modality Breast Bilateral Mammography 12/31/2024 1:52 PM EST Impressions 12/31/2024 2:07 PM EST No mammographic evidence of malignancy. ?? No suspicious interval change. A negative mammogram in the presence of a clinically suspicious palpable abnormality does not preclude the possibility of malignancy or alter the indications for biopsy. ASSESSMENT: ?? BI-RADS 2: BENIGN RECOMMENDATION(S): 1: Routine screening mammogram BILATERAL in 1 year. [facility] location: [facility] [address] [place], [address] -------- FINAL REPORT -------- Dictated By: Lenard Lentz Dictated Date: 12/31/2024 13:52 ET Assigned Physician: Lenard Lentz Reviewed and Electronically Signed By: Lenard Lentz Signed Date: 12/31/2024 14:07 ET Workstation ID: [id number] Transcribed By: Self Edit Transcribed Date: 12/31/2024 13:52 ET Narrative 12/31/2024 2:07 PM EST EXAM: ??SCREENING MAMMOGRAPHY, BILATERAL HISTORY: ??SCREENING. ??Benign scar noted upper outer right breast. ??Previous report indicates history of atypical ductal hyperplasia found at excision right breast 2018. COMPARISON: ??12/30/2023, 12/26/2022, 12/21/2021, 12/19/2020 TECHNIQUE: Synthesized CC and MLO projections of each breast. ??Tomosynthesis of each breast in the CC and MLO projections. ADDITIONAL IMAGING: None Computer-aided detection was employed with the iCAD ??profound AI 3-D. TISSUE DENSITY: There are scattered areas of fibroglandular density. (BI-RADS category B) FINDINGS: RIGHT BREAST: No suspicious mass. No suspicious calcification. No new area of distortion. ?? No change in an asymmetry in the area of previous surgery in the upper right breast. LEFT BREAST: No suspicious mass. No suspicious calcification. No distortion. ?? No additional suspicious left breast findings Procedure Note Lenard Lentz MD - 12/31/2024 EXAM: SCREENING MAMMOGRAPHY, BILATERAL HISTORY: SCREENING. Benign scar noted upper outer right breast.Previous report indicates history of atypical ductal hyperplasia found atexcision right breast 2018. COMPARISON: 12/30/2023, 12/26/2022, 12/21/2021, 12/19/2020 TECHNIQUE: Synthesized CC and MLO projections of each breast.Tomosynthesis of each breast in the CC and MLO projections. ADDITIONAL IMAGING: None Computer-aided detection was employed with the iCAD profound AI 3-D. TISSUE DENSITY: There are scattered areas of fibroglandular density.(BI-RADS category B) FINDINGS: RIGHT BREAST: No suspicious mass. No suspicious calcification. No new area ofdistortion. No change in an asymmetry in the area of previous surgery inthe upper right breast. LEFT BREAST: No suspicious mass. No suspicious calcification. No distortion. Noadditional suspicious left breast findings IMPRESSION: No mammographic evidence of malignancy. No suspicious interval change. A negative mammogram in the presence of a clinically suspicious palpableabnormality does not preclude the possibility of malignancy or alter theindications for biopsy. ASSESSMENT: BI-RADS 2: BENIGN RECOMMENDATION(S): 1: Routine screening mammogram BILATERAL in 1 year. [facility] [address], [address] -------- FINAL REPORT -------- Dictated By: Lenard Lentz Dictated Date: 12/31/2024 13:52 ET Assigned Physician: Mary Carmen, Lenard F Reviewed and Electronically Signed By: Lenard Lentz F Signed Date: 12/31/2024 14:07 ET Workstation ID: [id number] Transcribed By: Self Edit Transcribed Date: 12/31/2024 13:52 ET Carlene Paniaguauliffe DO IMG BI PROCEDURES Fin al Result from Last 3 Months Insurance MEDICARE [facility] Care Teams Aerospace Project Manager Relationship Specialty Start Date End Date Daphney Bhatia MD [address] [place] [address] PCP - General Internal Medicine 10/16/18
--- OUTSIDE RECORDS SUMMARY | 2025-02-02 12:34 | XMS_ITS | Encounter Summary ---
Author Organization [facility] Address [address] [place] [phone] Care Team Providers Care Electric Sealing Machine Operator Name Role Phone Daphney Bhatia MD Primary Care Provider [phone]- [phone] Encounter Details Date Type Department Care Team (Latest Contact Info) Description 01/08/2025 Lab Requisition [facility] - Main Lab [address] [place] [phone] Kelechi Stoddard MD [address] [phone] Encounter for gynecological examination (general) (routine) without abnormal findings Social History Tobacco Use Types Packs/Day Years [...] on file documented as of this encounter Plan of Treatment Upcoming Encounters Date Type Department Care Team (Late st Contact Info) Description 09/17/2025 10:30 AM EST Office Visit [facility] Hematology Oncology [address] [place] [phone] Carlene Boyd DO [address] [place] [address] documented as of this encounter Procedures Procedure Name Priority Date/Time Associated Diagnosis Comments PAP SMEAR Routine 01/07/2025 12:00 AM EST Encounter for gynecological examination (general) (routine) without abnormal findings documented in this encounter Results * Pap smear (01/07/2025 12:00 AM EST) Interpretation Unsatisfactory for evaluation/Unsuc cessful Attempt 01/11/2025 2:52 PM EDT [facility] General Categorization Other, see interpretation 01/11/2025 2:52 PM EDT [facility] Specimen Adequacy Specimen processed and examined, but unsatisfactory for eval of abnormal epithelial 01/11/2025 2:52 PM EDT [facility] Comment:Obscuring inflammati on present. Pap Methodology Liquid Based Pap Test 01/11/2025 2:52 PM EDT [facility] Disclaimer Note: This pap test could not be imaged utilizing the [employer] Imaging System and required a manual review. The Pap test is a screening test which carries an inherent false negative rate. These test results should be correlated with the patient's clinical findings and history. This Pap test was processed using an automated screening system. Technical cytopathology services provided by [facility], at [address] [place] [id number] (CLIA # [id number]/Calista Mata MD, Fertilizer Supervisor.) 01/11/2025 2:52 PM EDT [facility] Console Pap Interpretation Reported 01/11/2025 2:52 PM T [facility] Brushing/Spatula Cervix uteri structure / Unknown 01/07/2025 01/08/2025 7:46 AM EST us Kelechi Stoddard MD LAB CYTOLOGY ORDERABLES Final Result [facility] [address] [place] [address], documented in this encounter Visit Diagnoses Diagnosis Encounter for gynecological examination (general) (routine) without abnormal findings documented in this encounter Care Teams Electric Sealing Machine Operator Relationship Specialty Start Date End Date Daphney Bhatia MD [address] [place] [address] PCP - General Internal Medicine 10/16/18 documented as of this encounter
== END 2025-02-02 11:39 | disposition home or self-care (01) ==
LOC: HO.HMCC 10:33
PROVIDERS: PCP Internal Medicine; Visit Provider Internal Medicine
DX: Z00.00 Encounter for general adult medical examination without abnormal findings (principal); L63.9 Alopecia areata, unspecified; M85.852 Other specified disorders of bone density and structure, left thigh; N60.91 Unspecified benign mammary dysplasia of right breast; E79.0 Hyperuricemia without signs of inflammatory arthritis and tophaceous disease; Z71.89 Other specified counseling

== ENCOUNTER → 2025-02-02 10:33 | Outpatient (BNVA) | payer MEDICARE, SELFPAY | PROVIDERS: PCP Internal Medicine; Visit Provider Internal Medicine | DX: Z00.00 Encounter for general adult medical examination without abnormal findings (principal); L63.9 Alopecia areata, unspecified; M85.852 Other specified disorders of bone density and structure, left thigh; E79.0 Hyperuricemia without signs of inflammatory arthritis and tophaceous disease; N60.91 Unspecified benign mammary dysplasia of right breast; Z71.89 Other specified counseling | CPT/HCPCS: 96127; 99212 ==

== ENCOUNTER 2025-02-04 08:00 | Outpatient (REF) | payer MEDICARE, SELFPAY ==
--- OUTSIDE RECORDS SUMMARY | 2025-02-04 08:04 | XMS_ITS | Clinical Summary ---
Author Organization [facility] Address [address] [place] [address] Care Team Providers Care Floor Coverer Apprentice Name Role Phone Daphney Bhatia MD Primary Care Provider [phone] Allergies Active Allergy Reactions Criticality Noted Date [...] age to complete this topic Care Teams Floor Coverer Apprentice Relationship Specialty Start Date End Date Daphney Bhatia MD [address] [place] [id number] PCP - General Internal Medicine 10/16/18
--- OUTSIDE RECORDS SUMMARY | 2025-02-04 08:04 | XMS_ITS | Clinical Summary ---
Author Organization [facility] Address [address] [place] [phone] Phone Care Team Providers Care Canary Raiser Name Role Phone Daphney Bhatia MD Primary Care Provider +1- [phone] Allergies Active Allergy Reactions Criticality Noted Date [...] - 01/28/2025 11:59 PM EDT Hospital Encounter [facility] Bone Density [address] [place] [phone] Post-menopause Discharge Disposition: Home or Self Care 01/08/2025 Lab Requisition [facility] - Main Lab [address] [facility] [place] [phone] Kelechi Stoddard MD Encounter for gynecological examination (general) (routine) without abnormal findings 12/31/2024 10:06 AM EST - 12/31/2024 11:59 PM EST [facility] [address] [phone] Atypical ductal hyperplasia of breast; Encounter for screening mammogram for malignant neoplasm of breast Discharge Disposition: Home or Self Care from Last 3 Months Surgical History Surgery Date Site/Laterality Comments SHOULDER SURGERY 04/2017 Right PROCEDURE:SHOULDER SURGERY;COMMENT:Bicep Tendon tear SHOULDER SURGERY 2009 Left PROCEDURE:SHOULDER SURGERY;COMMENT:Tendon surgery COLONOSCOPY 04/2018 PROCEDURE:COLONOSCOPY;COMMENT:Dr Argueta at [facility]- polyps BREAST BIOPSY 09/15/2018 Right PROCEDURE:BREAST BIOPSY [...] Description 09/17/2025 10:30 AM EST Office Visit [facility] Hematology Oncology [address] [place] [phone] Carlene Boyd DO [address] [place] [address] Health Maintenance Due Date Last Done Comments [...] Td or Tdap) 03/04/2027 03/04/2017 RSV Immunization Adult Patients (1 - 1-dose 75+ series) 2031 Osteoporosis [...] probability of hip fracture of 1.0%. Code 71440 -------- FINAL REPORT -------- Dictated By: You Lorenzo Dictated Date: 01/28/2025 11:09 ET Assigned Physician: You Lorenzo Reviewed and Electronically Signed By: You Lorenzo Signed Date: 01/28/2025 11:10 ET Workstation ID: [id number] Transcribed By: Self Edit Transcribed Date: 01/28/2025 [...] density of the femurs bilaterally is 0.946 gm/nk9qtbbn is 94% of that of young normals [...] probability of hip fracture of 1.0%. Code 47914 -------- FINAL REPORT -------- Dictated By: You Lorenzo Dictated Date: 01/28/2025 11:09 ET Assigned Physician: You Lorenzo Reviewed and Electronically Signed By: You Lorenzo Signed Date: 01/28/2025 11:10 ET Workstation ID: [id number] Transcribed By: Self Edit Transcribed Date: 01/28/2025 11:09 ET us Kelechi Stoddard MD IM DXA PROCEDURES Final Resul t * Pap smear (01/07/2025 12:00 AM EST) Interpretation Unsatisfactory for evaluation/Unsuc cessful Attempt 01/11/2025 2:52 PM EDT [facility] General Categorization Other, see interpretation 01/11/2025 2:52 PM T [facility] Specimen Adequacy Specimen processed and examined, but unsatisfactory for eval of abnormal epithelial 01/11/2025 2:52 PM EDT [facility] Comment:Obscuring inflammati on present. Pap Methodology Liquid Based Pap Test 01/11/2025 2:52 PM EDT [facility] Disclaimer Note: This pap test could not be imaged utilizing the [employer] System and required a manual review. The Pap test is a screening test which carries an inherent false negative rate. These test results should be correlated with the patient's clinical findings and history. This Pap test was processed using an automated screening system. Technical cytopathology services provided by [facility], at [address] [place] [address], [place] [address] (CLIA # [id number]/Calista Mata MD, Administrative Intern.) 01/11/2025 2:52 PM EDT [facility] Console Pap Interpretation Reported 01/11/2025 2:52 PM EDT [facility] Brushing/Spatula Cervix uteri structure / Unknown 01/07/2025 01/08/2025 7:46 AM EST us Kelechi Stoddard MD LAB CYTOLOGY ORDERABLES Final Result Performing Organization Address City/State/[facility] Co de Phone Number [facility] [address] [place] [address], * MG Mammo Digital Screening w Isaac [...] year. Mammography location: [facility] [address] [place], [address] -------- FINAL REPORT -------- Dictated By: Lenard Lentz Dictated Date: 12/31/2024 13:52 ET Assigned Physician: Lenard Lentz Reviewed and Electronically Signed By: Lenard Lentz Signed Date: 12/31/2024 14:07 ET Workstation ID: [id number] Transcribed By: Self Edit Transcribed Date: 12/31/2024 [...] year. Mammography location: [facility] at [address], [address] -------- FINAL REPORT -------- Dictated By: Lenard Lentz Dictated Date: 12/31/2024 13:52 ET Assigned Physician: Lenard Lentz Reviewed and Electronically Signed By: Lenard Lentz Signed Date: 12/31/2024 14:07 ET Workstation ID: [id number] Transcribed By: Self Edit Transcribed Date: 12/31/2024 13:52 ET Carlene Paniaguauliffe DO IMG BI PROCEDURES Fin al Result from Last 3 Months Insurance MEDICARE [facility] Care Teams Canary Raiser Relationship Specialty Start Date End Date Daphney Bhatia MD [address] [place] [address] PCP - General Internal Medicine 10/16/18
--- OUTSIDE RECORDS SUMMARY | 2025-02-04 08:04 | XMS_ITS | Encounter Summary ---
Author Organization [facility] Address [address] [place] [phone] Care Team Providers Care Train Master Name Role Phone Daphney Bhatia MD Primary Care Provider [phone]- [phone] Encounter Details Date Type Department Care Team (Latest Contact Info) Description 01/08/[address] [facility] - Main Lab [address] [place] [phone] Kelechi Stoddard MD [address] [phone] Encounter for gynecological examination (general) (routine) without [...] Description 09/17/2025 10:30 AM EST Office Visit [facility] Hematology Oncology [address] [place] [phone] Carlene Boyd DO [address] [place] [address] documented as of this encounter Procedures Procedure Name Priority Date/Time Associated Diagnosis Comments PAP SMEAR Routine 01/07/2025 12:00 AM EST Encounter for gynecological examination (general) (routine) without abnormal findings documented in this encounter Results * Pap smear (01/07/2025 12:00 AM EST) Interpretation Unsatisfactory for evaluation/Unsuc cessful Attempt 01/11/2025 2:52 PM EDT [facility] General Categorization Other, see interpretation 01/11/2025 2:52 PM EDT [facility] Specimen Adequacy Specimen processed and examined, but unsatisfactory for eval of abnormal epithelial 01/11/2025 2:52 PM EDT [facility] Comment:Obscuring inflammati on present. Pap Methodology Liquid Based Pap Test 01/11/2025 2:52 PM EDT [facility] Disclaimer Note: This pap test could not be imaged utilizing the [employer] Imaging System and required a manual review. The Pap test is a screening test which carries an inherent false negative rate. These test results should be correlated with the patient's clinical findings and history. This Pap test was processed using an automated screening system. Technical cytopathology services provided by [facility], at [address] [place] [id number] (CLIA # [id number]/Calista Mata MD, Life Science Technical Officer.) 01/11/2025 2:52 PM EDT [facility] Console Pap Interpretation Reported 01/11/2025 2:52 PM T [facility] Brushing/Spatula Cervix uteri structure / Unknown 01/07/2025 01/08/2025 7:46 AM EST us Kelechi Stoddard MD LAB CYTOLOGY ORDERABLES Final Result [facility] [address] [place] [address], documented in this encounter Visit Diagnoses Diagnosis Encounter for gynecological examination (general) (routine) without abnormal findings documented in this encounter Care Teams Train Master Relationship Specialty Start Date End Date Daphney Bhatia MD [address] [address] PCP - General Internal Medicine 10/16/18 documented as of this encounter
[2025-02-04 11:12] LABS: MANUAL DIFF FLAG NO
[2025-02-04 11:31] LABS: Basophils Percent Auto 0.6 % (0-2); Eosinophils Absolute Auto 0.3 X10*3/uL (0.0-0.4); Eosinophils Percent Auto 5.1 % (0-4); Hematocrit 43.5 % (37.0-47.0); Hemoglobin 14.5 g/dl (12.0-16.0); Imm Gran Abs Auto 0.01 X10*3/uL (0.00-0.03); Imm Gran Pct Auto 0.2 % (0.0-0.4); Lymphocytes Absolute Auto 1.9 X10*3/uL (1.2-4.9); Lymphocytes Percent Auto 35.5 % (20-40); Mean Corpuscular HGB Conc 33.3 g/dl (31.0-35.0); Mean Corpuscular Hemoglobin 30.5 pg (27.0-33.0); Mean Corpuscular Volume 91.4 fL (80.0-98.0); Mean Platelet Volume 10.6 fL (9.4-12.3); Monocytes Absolute Auto 0.4 X10*3/uL (0.1-1.2); Neutrophils Absolute Auto 2.7 x10*3/uL (2.0-8.3); Neutrophils Percent Auto 51.6 % (45-73); Platelet Count 251 X10*3/uL (160-400); Red Blood Count 4.76 X10*6/uL (4.20-5.50); Red Cell Distribution Width 13.1 % (11.0-16.0); White Blood Count 5.3 X10*3/uL (4.8-10.8)
[2025-02-04 12:00] LABS: Alanine Aminotransferase 58 U/L (0-31); Albumin Level 4.4 g/dL (3.5-5.0); Alkaline Phosphatase 67 U/L (39-117); Anion Gap 13 (12-20); Aspartate Amino Transferase 49 U/L (5-31); Bilirubin Total 0.5 mg/dL (0.0-1.0); Blood Urea Nitrogen 14 mg/dL (9-16); Calcium 9.6 mg/dL (8.4-10.2); Carbon Dioxide 26 mmol/L (22-29); Chloride 108 mmol/L (96-108); Cholesterol 182 mg/dL (<200); Estimated Glomerular Filt Rate > 60; Glucose Fasting 85 mg/dL (60-99); HDL Cholesterol 54 mg/dL (>40); LDL Cholesterol Calculated 106 mg/dL (<100); Potassium 3.7 mmol/L (3.3-5.1); Sodium 143 mmol/L (135-145); Total Protein 8.1 g/dL (6.5-8.0); Triglycerides 113 mg/dL (<150); Uric Acid 8.3 mg/dL (2.4-5.7)
[2025-02-04 12:24] LABS: Vitamin D 25-OH Total 104.4 ng/mL (>30)
== END 2025-02-04 08:01 | disposition home or self-care (01) ==
LOC: HO.HMGCLDS 08:00
PROVIDERS: PCP Internal Medicine; Visit Provider Internal Medicine
DX: Z00.00 Encounter for general adult medical examination without abnormal findings (principal); L63.9 Alopecia areata, unspecified; D12.6 Benign neoplasm of colon, unspecified; E79.0 Hyperuricemia without signs of inflammatory arthritis and tophaceous disease; N60.91 Unspecified benign mammary dysplasia of right breast; M85.852 Other specified disorders of bone density and structure, left thigh
CPT/HCPCS: 36415; 80053; 80061; 82306; 84550; 85025